=== PATIENT | male | born 1970 | race Two or more races ===

== ENCOUNTER → 2021-04-19 | Emergency (ER) | payer OTHER ==
[~2021-04-19] VITALS: Ht 170.2 cm; Wt 74.4 kg
[~2021-04-19] MED LIST: DUI500 PO; FORTAMET500 MG; MUPIROCIN1 G1 TOP
== END ==
LOC: ER 12:04
DX: B35.1 Tinea unguium (principal); N34.1 Nonspecific urethritis

== ENCOUNTER 2021-05-20 08:00 | Outpatient (CLI) | payer OTHER | END 2021-05-20 08:30 | disposition home or self-care (01) | LOC: PPH VACUNA 08:00 | DX: Z23 Encounter for immunization (principal) ==